=== PATIENT | female | born 1985 | race Hispanic/Latino ===

== ENCOUNTER 2023-09-06 15:03 | Outpatient (CLI) | payer BC, OTHER | END 2023-09-06 15:04 | disposition home or self-care (01) | LOC: SCSMRI 15:03 | PROVIDERS: ATTEND Specialist | DX: M50.122 Cervical disc disorder at C5-C6 level with radiculopathy (principal); M50.123 Cervical disc disorder at C6-C7 level with radiculopathy; M48.02 Spinal stenosis, cervical region | CPT/HCPCS: 72141 ==